=== PATIENT | male | born 1950 | race Hispanic/Latino ===

== ENCOUNTER 2020-02-01 14:34 | Emergency (ER) | payer MEDICARE ==
[2020-02-01 16:04] VITALS: BP 107/74
--- NOTE | 2020-02-01 16:33 | Emergency Department Report ---
ED Recheck HPI - General Chief Complaint: Medical Clearance Stated Complaint: FEEDING TUBE Time Seen by Provider: 02/01/20 16:31 Source: patient Mode of arrival: Wheelchair Limitations: No Limitations - History of Present Illness Initial Comments: Patient is a 69-year-old male who comes to the ER with an obstructed PEG tube. He states that he tried to open it with [employer] but it did not work. So he presented to the ER. - Related Data Allergies Allergy/AdvReac Type Severity Reaction Status Date / Time No Known Allergies Allergy Unverified 02/01/20 16:01 ED Review of Systems ROS: Stated complaint: FEEDING TUBE Other details as noted in HPI Comment: All other systems reviewed and negative ED Past Medical Hx - Past Medical History Previous Medical History?: Yes Hx Hypertension: Yes Additional medical history: Esophageal Cancer - Surgical History Past Surgical History?: No - Family History Family history: no significant - Social History Smoking Status: Current Every Day Smoker Substance Use Type: None ED Physical Exam - General Limitations: No Limitations General appearance: alert, in no apparent distress - Head Head exam: Present: atraumatic, normocephalic - Eye Eye exam: Present: normal appearance - ENT ENT exam: Present: mucous membranes moist - Neck Neck exam: Present: normal inspection - Respiratory Respiratory exam: Present: normal lung sounds bilaterally. Absent: respiratory distress - Cardiovascular Cardiovascular Exam: Present: regular rate, normal rhythm. Absent: systolic murmur, diastolic murmur, rubs, gallop - GI/Abdominal GI/Abdominal exam: Present: soft, normal bowel sounds - Rectal Rectal exam: Present: deferred, other (PEG tube) - Extremities Exam Extremities exam: Present: normal inspection - Back Exam Back exam: Present: normal inspection - Neurological Exam Neurological exam: Present: alert, oriented X3 - Psychiatric Psychiatric exam: Present: normal affect, normal mood - Skin Skin exam: Present: warm, dry, intact, normal color. Absent: rash ED Course Vital Signs 02/01/20 16:01 Temperature 97.6 F Pulse Rate 106 H Respiratory 18 Rate Blood Pressure 107/74 O2 Sat by Pulse 98 Oximetry - Feeding Tube Replacement Reason for Replacement: not functioning/damaged Initial Tube Inserted: greater than 4 weeks Type of Tube: gastrostomy Use of Tube: medications and feeding Insertion Site Prior to Procedure: excoriated Tube Used for Reinsertion: other (22 FR PEG) [place] Tube Size (F): 33 Balloon Size (mls): 10 (ML) Used for Assist in Placement: other Verification of Placement: auscultation, other (GASTRIC CONTENTS ASPIRATED) Tube Secured by: tape/dressing Patient Tolerated Procedure: well Additional Comments: TOLERATED WELL ED Recheck MDM - Core Measures Measure Exclusions: not indicated - Medical Decision Making HERE BECAUSE PEG TUBE IS CLOGGED PT TRIED SODA POP AT HOME AND IT DID NOT WORK to declog tube I could see pieces of pillS in the tube itself PANCREALIPASE/BICARB USED in the ER and the tube would not declog. PEG tube changed to a 22 [place] with a 10 mL balloon. Patient has been instructed to make sure that his medications are crushed and dissolved prior to instilling into the PEG tube. Patient being discharged to home Vital Signs 02/01/20 16:01 Temperature 97.6 F Pulse Rate 106 H Respiratory 18 Rate Blood Pressure 107/74 O2 Sat by Pulse 98 Oximetry Critical care attestation.: If time is entered above; I have spent that time in minutes in the direct care of this critically ill patient, excluding procedure time. ED Disposition Clinical Impression: PEG tube malfunction Disposition: DC-01 TO HOME OR SELFCARE Is pt being admited?: No Does the pt Need Aspirin: No Condition: Stable Additional Instructions: FOLLOW UP WITH PCP IN THE AM FLUSH TUBE PER RECOMMENDATIONS Referrals: MICK GALEANA MD [Staff Physician] - 3-5 Days Time of Disposition: 16:55
[2020-02-01] MEDS ORDERED: LIPASE 10,500/PROTEASE 25,000/AMYLASE 43,750 (UNITS) DR CAP FEEDTUBE PRN (16:37)
[2020-02-01] MEDS ORDERED: SODIUM BICARBONATE 325 MG TAB FEEDTUBE PRN (16:37)
== END 2020-02-01 21:00 | disposition home or self-care (01) ==
LOC: ED 14:34
DX: K94.23 Gastrostomy malfunction (principal); I10 Essential (primary) hypertension; F17.200 Nicotine dependence, unspecified, uncomplicated; Z85.01 Personal history of malignant neoplasm of esophagus